=== PATIENT | female | born 1950 | race Caucasian/White ===

== ENCOUNTER 2016-05-08 20:03 | Emergency (ER) | payer OTHER ==
[~2016-05-08] VITALS: Ht 167.6 cm; Wt 113.0 kg
[2016-05-08 20:06] VITALS: BP 133/73; PULSE 90; RESP 16; TEMP 98; O2SAT 97
--- NOTE | 2016-05-08 21:25 | PD ---
HPI Chief Complaint: Fall Time Seen by Provider: 21:21 Travel History International Travel<30 days: No Contact w/Intl Traveler<30days: No Traveled to known affect area: No History of Present Illness HPI 65-year-old female presents to emergency department for a trip and fall. The patient states that she has gait disturbance normally and uses a walker when she goes distances. She states that she was not using her walker at the time of her fall. She states that she tripped and fell injuring her right ribs, right knee, and left wrist. She has chronic back pain and takes oxycodone. She is currently in pain management. She denies syncope. No injury to her chest or abdomen. Pain is mild to moderate. [facility] Past Medical History Narrative Medical Chronic back pain Tetanus Vaccination: < 5 Years Social History Alcohol Use: No Tobacco Use: No Substance Use: No Allergies-Medications (Allergen,Severity, Reaction): Coded Allergies: Penicillin (Verified Allergy, Unknown, 05/08/16) Review of Systems Except as stated in HPI: all other systems reviewed are Neg Physical Exam Narrative GENERAL: Well-developed, morbidly obese in no apparent distress. Nontoxic appearing. HEAD: Normocephalic, atraumatic. EYES: Pupils equal round and reactive. Extraocular motions intact. No scleral icterus. No injection or drainage. ENT: Nose clear. Throat without erythema, tonsillar hypertrophy or exudate. Uvula midline. Airway patent. NECK: Trachea midline. Supple, nontender, moves head freely. No central bony tenderness or spasm. CARDIOVASCULAR: Regular rate and rhythm without murmurs, gallops, or rubs. RESPIRATORY: Clear to auscultation. Breath sounds equal bilaterally. No wheezes , rales, or rhonchi. CHEST: Patient has some anterior rib tenderness underneath her right breast and the area of her seventh rib without deformity or crepitance. No retractions or use of accessory muscles. GASTROINTESTINAL: Abdomen soft, non-tender, nondistended. No hepato-splenomegaly , or palpable masses. No guarding. EXTREMITIES: No clubbing, cyanosis, patient has +1 edema in the lower extremities. Examination the right lower extremity reveals tenderness over the patella. She has limited extension as well as flexion. No gross instability. She has arthritic changes. No pain in the hip, ankle or foot. She has intact sensation with good distal pulses. The left lower extremity is unremarkable for acute trauma. Right upper extremity is unremarkable for acute trauma. The left upper extremity reveals tenderness over the distal ulna. Mild tenderness over the distal radius. No snuffbox pain. No pain in the fingers, elbow or shoulder. BACK: Nontender without deformity. No flank tenderness. NEUROLOGICAL: Awake, alert and oriented x 3 .Cranial nerves grossly intact. Motor and sensory grossly within normal limits. Normal speech. Data Data Last Documented VS Vital Signs Date Time Temp Pulse Resp B/P Pulse Ox O2 Delivery O2 Flow Rate FiO2 05/08/16 20:06 98.0 90 16 133/73 97 Room Air Orders Knee, Complete (4vws) (05/08/16 21:04) Wrist, Complete ([id number]) (05/08/16 21:04) Ribs, Uni (W/Exp Cxr-Min 3vw) (05/08/16 21:04) Splint Or Brace Apply/Monitor (05/08/16 21:41) [facility] Medical Decision Making Medical Screen Exam Complete: Yes Emergency Medical Condition: Yes Medical Record Reviewed: Yes Interpretation(s) Right RIBS: Negative for acute fracture. No palmar process. Right knee: Negative for acute fracture. Positive tricompartmental arthritis Left wrist: Negative for acute fracture. Differential Diagnosis MDM: High Differential diagnoses: Fracture, sprain, strain, dislocation, contusion, neurovascular injury Narrative Course X-rays are negative. Patient's given a Velcro wrist splint. Diagnosis Primary Impression: Left wrist sprain Qualified Code: S63.502A - Left wrist sprain, initial encounter Additional Impressions: Contusion of right knee Qualified Code: S80.01XA - Contusion of right knee, initial encounter Contusion of rib on right side Qualified Code: S20.211A - Contusion of rib on right side, initial encounter Patient Instructions: General Instructions Additional Instructions: Rest. Ice. Meloxicam. Velcro wrist splint. Follow-up with your doctor on Wednesday. Med/Other Pt SpecificInfo: Prescription(s) given Scripts Meloxicam (Mobic)15 Mg Tab15 Mg PO DAILY #30 TAB Prov:Liu Gambino MD 05/08/16 Disposition: 01 DISCHARGE HOME Condition: Stable Cory Rosenthal May 08, 2016 21:25
[2016-05-08] MEDS ORDERED: MOBI15TA PO (21:43)
--- NOTE | 2016-05-08 21:53 | RADRPT ---
EXAM DATE/TIME: 05/08/2016 21:36 [facility] COMPARISON: No previous studies available for comparison. INDICATIONS : Right knee pain, fall. MEDICAL HISTORY : None. SURGICAL HISTORY : None. ENCOUNTER: Initial ACUITY: 2 days PAIN SCORE: 10/10 LOCATION: Right lateral knee FINDINGS: Moderate osteoarthritis is noted involving the patellofemoral and femorotibial joints. There is no ac terell fracture or dislocation. No knee joint effusion is noted. CONCLUSION: 1. Moderate osteoarthritis involving the patellofemoral and femorotibial joints. 2. No acute fracture, dislocation, or knee joint effusion. Josr Bahena MD on May 08, 2016 at 21:50 Board Certified Radiologist. This report was verified electronically.
--- NOTE | 2016-05-08 21:54 | RADRPT ---
EXAM DATE/TIME: 05/08/2016 21:45 [facility] COMPARISON: No previous studies available for comparison. INDICATIONS : Left wrist pain, fall. MEDICAL HISTORY : None. SURGICAL HISTORY : None. ENCOUNTER: Initial ACUITY: 2 days PAIN SCORE: 8/10 LOCATION: Left lateral wrist FINDINGS: Three view examination of the left wrist demonstrates no soft tissue swelling, dislocation, or fractu re. The carpal bones are in normal alignment. The joint spaces are maintained. Bony mineralization is normal. CONCLUSION: No acute disease. Josr Bahena MD on May 08, 2016 at 21:52 Board Certified Radiologist. This report was verified electronically.
--- NOTE | 2016-05-08 21:55 | RADRPT ---
EXAM DATE/TIME: 05/08/2016 21:30 [facility] COMPARISON: No previous studies available for comparison. INDICATIONS : Right side rib pain, fall. MEDICAL HISTORY : None. SURGICAL HISTORY : None. ENCOUNTER: Initial ACUITY: 2 days PAIN SCORE: 8/10 LOCATION: Right lower chest FINDINGS: There is mild elevation of the right hemidiaphragm. Fibrotic scarring and/or discoid atelectasis is noted within the lung bases. No pulmonary edema is noted. The heart and mediastinal structures are normal. Degenerative changes are noted throughout the thoracic spine. CONCLUSION: 1. Bibasilar streakiness consistent with atelectasis and/or scarring. 2. Degenerative changes throughout the thoracic spine. Josr Bahena MD on May 08, 2016 at 21:51 Board Certified Radiologist. This report was verified electronically.
== END 2016-05-08 21:58 | disposition home or self-care (01) ==
LOC: NETRI 20:03
DX: S63.502A Unspecified sprain of left wrist, initial encounter (principal); S80.01XA Contusion of right knee, initial encounter; S20.211A Contusion of right front wall of thorax, initial encounter; M54.9 Dorsalgia, unspecified; G89.29 Other chronic pain; R26.9 Unspecified abnormalities of gait and mobility; W01.0XXA Fall on same level from slipping, tripping and stumbling without subsequent striking against object, initial encounter; Y93.01 Activity, walking, marching and hiking; Y92.009 Unspecified place in unspecified non-institutional (private) residence as the place of occurrence of the external cause
CPT/HCPCS: 71101; 73110; 73564; 99284; L3908